=== PATIENT | male | born 1995 | race Caucasian/White ===

== ENCOUNTER 2017-06-08 18:41 | Emergency (ER) | payer SELFPAY ==
[~2017-06-08] VITALS: Ht 167.6 cm; Wt 118.2 kg
[2017-06-08] MEDS ORDERED: MOTRIN600 MG PO (20:13)
[2017-06-08 20:34] VITALS: BP 133/83
== END 2017-06-08 20:35 | disposition home or self-care (01) ==
LOC: EME 18:41
DX: M25.561 Pain in right knee (principal); S89.91XA Unspecified injury of right lower leg, initial encounter; Y93.72 Activity, wrestling; Y93.83 Activity, rough housing and horseplay
CPT/HCPCS: 73564; 99281; 99284